=== PATIENT | male | born 1995 | race Caucasian/White ===

== ENCOUNTER → 2021-12-24 | Outpatient (CLI) | payer SELFPAY ==
[2021-12-24 15:04] LABS: SEMEN VOLUME 3.3 ML (1.5-5.0)
== END ==
LOC: LAB 14:19
PROVIDERS: ATTEND Obstetrics & Gynecology
DX: N46.9 Male infertility, unspecified (principal)
CPT/HCPCS: 89320

== ENCOUNTER → 2022-01-25 | Outpatient (CLI) | payer SELFPAY ==
[2022-01-25 13:17] LABS: SEMEN VOLUME 2.1 ML (1.5-5.0)
== END ==
LOC: LAB 11:16
PROVIDERS: ATTEND Obstetrics & Gynecology
DX: N46.9 Male infertility, unspecified (principal)
CPT/HCPCS: 89320